=== PATIENT | male | born 1960 ===

== ENCOUNTER 2025-06-29 09:27 | Emergency (ER) | payer MEDICARE, MEDICAID, SELFPAY ==
[2025-06-29] VITALS (8 sets, daily range): BP systolic 112–154; BP diastolic 70–105; PULSE 73–95; RESP 16–19; TEMP 36.3–37.1; O2SAT 95–99; BMI 27.9
--- NOTE | 2025-06-29 10:10 | EDNOTE_ITS ---
ED Skin Abcess FB-RME/HPI General Chief complaint: Skin/Abscess/Foreign Body Stated complaint: SENT BY PMD FOR ABSCESS TO LEFT LEG Time Seen by Provider: 06/29/25 09:33 Arrival date/time: 06/29/25 09:27 RME / HPI RME / HPI narrative: See MDM for Dr. Pickett's HPI documentation. Related Data Allergies Allergy/AdvReac Type Severity Reaction Status Date / Time No Known Allergies Allergy Verified 06/29/25 09:31 Review of Systems Review of Systems Systems Reviewed: All systems reviewed, normal except as documented Past Medical History Social History SMOKING STATUS: Never smoker ED Exam Narrative Physical exam: See MDM for Dr. Pickett's physical exam documentation. Course Quality Measures none Orders Category Date Time Status CT Screening NOW Care 06/29/25 10:12 Active Saline [Insert IV] NOW Care 06/29/25 10:11 Active Consult to Orthopedic Stat Cons 06/29/25 16:12 Ordered Referral - Materials Handling Equipment Operator Stat Cons 06/29/25 16:13 Active Diet Regular Diet 06/29/[address] lower extremity BI w Stat Exams 06/29/25 10:12 Completed XR chest 1V portable Stat Exams 06/29/25 10:12 Completed XR hip LT w pelvis 2-3V Stat Exams 06/29/25 15:50 Completed Alcohol, Blood Medical Stat Lab 06/29/25 11:29 Completed Beta Hydroxybutyrate Stat Lab 06/29/25 11:29 Completed Bilirubin,Direct Stat Lab 06/29/25 11:29 Completed Blood Culture (Lab) Stat Lab 06/29/25 11:29 Received CBC Stat Lab 06/29/25 11:29 Completed CK [Creatine Kinase] Stat Lab 06/29/25 11:29 Completed CMP [Comprehensive Metabolic Panel] Stat Lab 06/29/25 11:29 Completed CRP [C-Reactive Protein] Stat Lab 06/29/25 11:29 Completed Drug Screen,Urine Stat Lab 06/29/25 12:58 Completed ESR [Sed Rate (ESR)] Stat Lab 06/29/25 11:29 Completed Hemoglobin A1C [Glycohemoglobin w (eAG)] Stat Lab 06/29/25 16:51 Ordered Lactate (Lactic Acid) Stat Lab 06/29/25 11:29 Completed Magnesium Stat Lab 06/29/25 11:29 Completed Procalcitonin Stat Lab 06/29/25 11:29 Completed TSH [Thyroid Stimulating Hormone] Stat Lab 06/29/25 11:29 Completed UA, C/S IF [Urinalysis, C/S if Indicated] Stat Lab 06/29/25 12:58 Completed VBG [Venous Blood Gas] Stat Lab 06/29/25 11:29 Completed Cefepime Inj [Maxipime Inj] 2 gm Med 06/29/25 10:11 Discontinued SODIUM CHLORIDE 0.9% (Popper) [Ns 0.9% (P)] 50 ml IV X1 Sodium Chloride 0.9% 1000 ml [Ns] 1,000 ml Med 06/29/25 10:11 Discontinued IV 999 mls/hr Vancomycin Inj 2,000 mg Med 06/29/25 10:11 Discontinued Sodium Chloride 0.9% 500 ml [Ns] 500 ml IV X1 Vital Signs Vital signs: Vital Signs Temperature 98.4 F 06/29/25 09:39 Pulse Rate 90 06/29/25 09:39 Respiratory Rate 16 06/29/25 09:39 Blood Pressure 112/71 06/29/25 09:39 Pulse Oximetry (%) 98 06/29/25 09:39 Oxygen Delivery Method Room Air 06/29/25 09:39 Pulse ox is 98% on room air which is adequate. Skin / Abscess / Foreign Body MDM Narrative MDM Narrative:: This section includes all my notes and documentations, including HPI, PE, and ED course. Atilio Pickett MD HPI: 65-year-old male here with a couple month history of redness/swelling/warmth/pa in in the left hip. Had left total hip in [place] over 30 years ago, around 1989. Due to insurance problem, he didn't seek medical care until today. No fever or chills or aches or malaise. No other complaints. ROS: All negative except as documented in HPI. Physical Exam: General: Alert and oriented. No acute distress with remaining still. Eyes: Conjunctivae and lids clear. ENT: No nasal congestion. Neck: Supple. Heart: RRR. Lungs: No respiratory distress. Skin: Warm and dry. Neuro: Alert and oriented X 3. Left Hip: Large area (size of small watermelon) with erythema/ edema/calor/tenderness. I reviewed all diagnostic test results: My interpretation of the chest x-ray is: NAD. My review of the left hip x-rays is: Subluxation of the proximal femoral head relative to the prosthetic acetabulum. Bone resorption/osteomyelitis surrounding the entire prosthetic left acetabulum. My review of the CT report is osteomyelitis and abscess. Blood tests and urine tests remarkable for WBC 16, ESR > 130, CRP 3.0. At this point, diagnoses include: Left hip osteomyelitis Left hip cellulitis Left hip abscess Left hip dislocation Status post total left hip arthroplasty Treatment here included: IVF Cefepime Vancomycin Remained stable. I discussed the case with our orthopedic surgeon, Dr. Lea.? About the presentation and exam and diagnostics and treatments here.? And need of further care in the hospital.? Recommended transfer to tertiary center for higher level of care. Our transfer nurse is trying to arrange transfer. At 6 PM on 06/29/2025, the care of the patient was transferred to Dr. Larose. Atilio Pickett MD Patient data External records reviewed:: None (No previous records for review ) Clinical information provided by:: patient Social determinants that could affect healthcare access:: none Patient has the following chronic illnesses:: None reported How is presenting disease/condition affected by chronic disease/condition?: no chronic disease Evaluation data The following diagnostics were reviewed and interpreted by me:: lab results and radiology exam(s) Lab and/or radiology exams considered but not ordered:: None Interpretation Summary: I reviewed all diagnostic test results: My interpretation of the chest x-ray is: NAD. My review of the left hip x-rays is: Subluxation of the proximal femoral head relative to the prosthetic acetabulum. Bone resorption/osteomyelitis surrounding the entire prosthetic left acetabulum. My review of the CT report is osteomyelitis and abscess. Blood tests and urine tests remarkable for WBC 16, ESR > 130, CRP 3.0. Medications / Prescriptions Medications or Prescriptions considered but not ordered:: None Medication administrations:: Medication Administration History Discontinued Medications Sodium Chloride (Ns) 1,000 mls @ 999 mls/hr IV .Q1H1M ONE Stop: 06/29/25 11:11 Last Infusion: 06/29/25 12:35 Dose: Infused Documented By: Admin: 06/29/25 11:34 Dose: 999 mls/hr Documented By: TM Vancomycin HCl 2,000 mg/ (Sodium Chloride) 500 mls @ 150 mls/hr IV X1 ONE Stop: 06/29/25 13:30 Last Admin: 06/29/25 12:57 Dose: 150 mls/hr Documented By: TM Cefepime HCl 2 gm/ Sodium (Chloride) 50 mls @ 100 mls/hr IV X1 ONE Stop: 06/29/25 10:40 Last Infusion: 06/29/25 12:04 Dose: Infused Documented By: Admin: 06/29/25 11:34 Dose: 100 mls/hr Documented By: TM Treatment here included: IVF Cefepime Vancomycin Consultations Consultation(s) initiated? (list below): Yes Consultation #1 (Physician, Specialty, Details): I discussed the case with our orthopedic surgeon, Dr. Lea.? About the presentation and exam and diagnostics and treatments here.? And need of further care in the hospital.? Recommended transfer to tertiary center for higher level of care. Diagnosis Skin/Abscess Differential Diagnosis: abscess of skin or subcutaneous tissue, herpes zoster, allergic reaction to drug, cellulitis and contact dermatitis Most likely diagnosis given after review of the tests above:: Left hip osteomyelitis Left hip cellulitis Left hip abscess Left hip dislocation Status post total left hip arthroplasty Admission Indicated Admission indicated?: not indicated Explain why admission is indicated or not indicated:: I discussed the case with our orthopedic surgeon, Dr. Lea.? About the presentation and exam and diagnostics and treatments here.? And need of further care in the hospital.? Recommended transfer to tertiary center for higher level of care. Admission Request Was there a request for admission?: No Disposition Plan Disposition Plan: other (specify) (At 6 PM on 06/29/2025, the care of the patient was transferred to Dr. Larose.) Discharge Plan Prescriptions/Referrals Referrals: Eugenio Macias MD [Primary Care Provider, Family Practice] - In 1 week Problem List Clinical Impression: Osteomyelitis of left hip, Cellulitis of left hip, Abscess of left hip, S/P total left hip arthroplasty, Dislocation of left hip Patient/Caregiver Discharge Instructions Print Language: Latvian
--- NOTE | 2025-06-29 10:12 | XR_ITS ---
Examination: CT bilateral lower extremities with intravenous contrast, 2-D sagittal reconstructions. 2-D coronal reconstructions. 3-D reconstructions. Date and time of exam: June, 1450 hours INDICATIONS: Upper left leg pain beginning 1 week ago CTDI: vol (mGy): 7.98 DLP: (mGycm): 775 Technique: Multiple 1.25 mm axial sections of the bilateral lower extremities with intravenous contrast, 60 cc Isovue-370 have been obtained. 2-D sagittal and coronal reconstructions have been obtained. 3-D reconstructions have been obtained. Low dose protocols were performed. One or more of the following dose reduction techniques were used; automated exposure control, adjustment of the mA and/or KV according to patient size, use of iterative reconstruction technique. Findings: Left hip bipolar hemiarthroplasty Bone resorption around the prosthetic acetabulum No fracture No fracture involving the femur Soft tissue swelling surrounding the prosthetic left hip Abscess collection in the soft tissue anterior to the prosthetic stem in the anterior thigh in the iliacus muscle, axial image 57, 3.4 x 2.8 x 8.1 cm Cellulitis in the soft tissue lateral to the left femur IMPRESSION: Bone resorption consistent with osteomyelitis surrounding the left hip bipolar hemiarthroplasty with soft tissue infectious mass surrounding the left hip including abscess in the anterior thigh in the iliacus muscle, measuring 3.4 x 2.8 x 8.1 cm
--- NOTE | 2025-06-29 10:12 | XR_ITS ---
EXAMINATION: AP chest single view TECHNIQUE: AP portable sitting chest single view Date and time: June 29, 2025, 10:30 a.m. INDICATION: Shortness of breath today. FINDINGS: The patient is rotated RPO. Normal heart size. Lungs are clear. Moderate osteopenia IMPRESSION: No active disease
[2025-06-29] MEDS: SODIUM CHLORIDE 0.9% 1000 ML 1,000 ML 999 ML IV (11:34)
[2025-06-29] MEDS: CEFEPIME INJ 2 GM in SODIUM CHLORIDE 0.9% (Popper) 50 ML IV (11:34)
[2025-06-29 11:40] LABS: Base Excess, Venous 2 (-3-3); Lactate (Lactic Acid) 1.4 mMol/L (0.4-2.0); O2 Saturation, Venous 54 % (96-97); PCO2, Venous 42 mmHg (36-56); PO2, Venous 29 mmHg (15-58); pH, Venous 7.41 (7.33-7.66)
[2025-06-29 11:42] LABS: Basophils # (Auto) 0.1 Thou/mm3 (0.0-0.2); Basophils % (Auto) 0 % (0-2.5); Eosinophils # (Auto) 0.2 Thou/mm3 (0.0-0.5); Eosinophils % (Auto) 1 % (0-10); Hematocrit 36.8 % (41.0-53.0); Hemoglobin 11.6 g/dL (13.5-16.0); Immature Granulocytes Auto 0.09 Thou/mm3 (0.00-0.00); Lymphocytes # (Auto) 2.0 Thou/mm3 (1.0-4.8); Lymphocytes % (Auto) 12 % (10-50); Mean Corpuscular HGB Conc 31.5 g/dl (31.0-37.0); Mean Corpuscular Hemoglobin 24.3 pg (25.0-35.0); Mean Corpuscular Volume 77 fL (80-100); Monocytes # (Auto) 1.3 Thou/mm3 (0.0-0.8); Monocytes % (Auto) 8 % (0-12); Neutrophils # (Auto) 12.3 Thou/mm3 (1.8-7.7); Neutrophils % (Auto) 77 % (37-80); Nucleated Red Blood Cell # 0.00 Thou/mm3 (0.00-0.00); Nucleated Red Blood Cell % 0 /100 WBC (0); Platelet Count 551 Thou/mm3 (140-440); RDW Standard Deviation 42.6 fL (35.1-43.9); Red Blood Count 4.78 Miln/mm3 (4.50-5.90); White Blood Count 16.0 Thou/mm3 (3.8-10.6)
[2025-06-29 11:50] LABS: Beta Hydroxybutyrate 0.1 mmol/L (<0.6)
[2025-06-29 12:13] LABS: Sed Rate (ESR) > 130 mm/hr (0-20)
[2025-06-29 12:14] LABS: Alanine Aminotransferase 14 U/L (10-49); Albumin, Serum 4.5 gm/dL (3.4-4.8); Albumin/Globulin Ratio 1.2 (1.2-2.2); Alcohol, Blood Medical < 3.0 mg/dL (0-10.0); Alkaline Phosphatase 89 U/L (46-116); Anion Gap 10 (7-16); Aspartate Amino Transferase 15 U/L (0-34); BUN/Creatinine Ratio 14 Ratio (12-20); Bilirubin,Direct 0.1 mg/dL (0.0-0.3); Bilirubin,Total 0.3 mg/dL (0.3-1.2); Blood Urea Nitrogen 13 mg/dL (9-23); C-Reactive Protein 3.0 mg/dL (0.0-0.9); Calcium 9.5 mg/dL (8.3-10.6); Calcium (Corrected) 9.5 mg/dL (8.5-10.1); Carbon Dioxide 25.0 mMol/L (20.0-31.0); Chloride 102 mMol/L (98-107); Creatine Kinase 36 U/L (34-171); Creatinine (Component) 0.9 mg/dL (0.6-1.3); Estimated Creatinine Clearance 75.9 mL/min (>60); Globulin 3.7 gm/dL (2.3-3.5); Glucose 97 mg/dL (74-106); Magnesium 2.0 mg/dL (1.6-2.6); Osmolality,Calculated 273 (275-295); Potassium 3.8 mMol/L (3.4-5.1); Procalcitonin < 0.04 ng/ml (0.0-0.49); Sodium 137 mMol/L (136-145); Thyroid Stimulating Hormone 2.15 uIU/mL (0.55-4.78); Total Protein 8.2 gm/dL (5.7-8.2); eGFR > 60 See Note
--- NOTE | 2025-06-29 12:16 | PC.NURSE ---
pharmacy to bring soraya
[2025-06-29] MEDS: Vancomycin Inj 2,000 MG in SODIUM CHLORIDE 0.9% 500 ML 500 ML 150 MG IV (12:57)
[2025-06-29 13:14] LABS: Collection Type, Urine Clean Catch; Squamous Epithelial Cell,Urine 0 /hpf (0-5)
[2025-06-29 13:24] LABS: Amphetamine/Methamp Scrn,U Negative (Negative); Barbiturate Screen,Urine Negative (Negative); Benzodiazepines Screen,Urine Negative (Negative); Benzoylecgonine Screen, Ur Negative (Negative); Fentanyl Screen,Urine Negative (Negative); Opiate Screen,Urine Negative (Negative); THC Screen,Urine Negative (Negative)
[2025-06-29 13:44] LABS: Bilirubin,Urine Negative (Negative); Blood,Urine Negative (Negative); Clarity,Urine Clear (Clear/Hazy); Color,Urine Lt-Yellow (Lt Yel-Yel); Culture Indicated,Urine Not Indicated; Glucose, Urine Negative (Negative); Ketones,Urine Negative (Negative); Leukocyte Esterase,Urine Negative (Negative); Nitrite,Urine Negative (Negative); PH,Urine 6.5 (5.0-7.0); Protein,Urine Negative (Neg - Trace); RBC,Urine 4 /hpf (0-3); Specific Gravity,Urine 1.016 (1.001-1.035); Urobilinogen,Urine Negative mg/dL (0.0-1.0); WBC,Urine 3 /hpf (0-5)
--- NOTE | 2025-06-29 15:50 | XR_ITS ---
Examination: Left hip AP, lateral, AP pelvis 3 views Technique: Hip AP lateral, AP pelvis, 3 views Exam date and time: June 29, 2025, 1553 hours INDICATIONS: Patient fell today with injury to the hip, hip pain FINDINGS: There appears to be subluxation of the proximal femoral head relative to the acetabular There is bone resorption surrounding the entire prosthetic left hip No definite fracture IMPRESSION: Subluxation of the proximal femoral head relative to the prosthetic acetabulum Bone resorption/osteomyelitis surrounding the entire prosthetic left acetabulum.
--- NOTE | 2025-06-29 16:18 | ESCONSULT_ITS ---
HPI Consult details Reason for consultation narrative: left hip periprosthetic joint infection History of present illness: Patient is a 65-year-old male with multiple medical comorbidities including uncontrolled diabetes who presents with left hip pain. I spoke to the patient with an medical interpreter today. Meds Home Medications and Allergies Allergies Allergy/AdvReac Type Severity Reaction Status Date / Time No Known Allergies Allergy Verified 06/29/25 09:31 Exam Vital Signs Temp Pulse Resp BP Pulse Ox O2 Del Method 98.4 F 73 18 154/105 H 99 Room Air 06/29/25 14:19 06/29/25 14:19 06/29/25 14:19 06/29/25 14:19 06/29/25 14:19 06/29/25 14:19 Additional findings Additional findings: Patient has a draining sinus on the anterior thigh ESR 130, CRP 30 Results - Ortho Labs 06/30/25 06:38 06/30/25 06:38 Labs: Short CBC 06/29/25 Range/Units 11:29 WBC 16.0 H (3.8-10.6) Thou/mm3 Hgb 11.6 L (13.5-16.0) g/dL Hct 36.8 L (41.0-53.0) % Plt Count 551 H (140-440) Thou/mm3 BMP 06/29/25 11:29 Sodium 137 Potassium 3.8 Chloride 102 Carbon Dioxide 25.0 BUN 13 Creatinine 0.9 Glucose 97 Calcium 9.5 Cardiac Enzymes 06/29/25 Range/Units 11:29 Total Creatine Kinase 36 (34-171) U/L Liver Function 06/29/25 Range/Units 11:29 Total Bilirubin 0.3 (0.3-1.2) mg/dL Direct Bilirubin 0.1 (0.0-0.3) mg/dL AST 15 (0-34) U/L ALT 14 (10-49) U/L Alkaline Phosphatase 89 (46-116) U/L Albumin 4.5 (3.4-4.8) gm/dL Urine 06/29/25 Range/Units 12:58 Urine Color Lt-Yellow (Lt Yel-Yel) Urine Clarity Clear (Clear/Hazy) Urine pH 6.5 (5.0-7.0) Ur Specific [place] 1.016 (1.001-1.035) Urine Protein Negative (Neg - Trace) Urine Glucose (UA) Negative (Negative) ABG Interpretation ABG results: 06/29/25 11:29 VBG pH 7.41 VBG pCO2 42 VBG pO2 29 VBG Base Excess 2 Imaging Xray: Additional comments: Patient has an x-ray that demonstrates a cementless total hip replacement with a spun out and the loose acetabular component. In addition, the hip is dislocated because of the cup spin out consistent with acetabular loosening. There is a long stemmed cementless component that appears to be circumferentially coated. CT scan demonstrates a hip abscess approximately 3 x 8 cm. Assessment & Plan Problem List (1) Prosthetic joint infection: Status: Acute Assessment and plan: Patient is a 65-year-old male with multiple comorbidities including poorly controlled diabetes with a left total hip replacement done in the and with periprosthetic joint infection, acetabular loosening, and a dislocation with a chronically draining sinus. The patient's hemodynamic signs are currently stable. He has elevated ESR and CRP markers as expected. The patient has no known organism and will need an aspiration. 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 Given the extent of his complications, I think it is very safe to say that his surgery should not be done at the [facility]. He will almost for sure need an ETO to remove his stem and I honestly have a universal femoral extraction set available at this hospital or any pencil-tip burs for removal of this femoral component. Should the patient become hemodynamically unstable I will consider washing out the abscess but the patient will likely need a two-stage exchange arthroplasty since his acetabular component is loose and spun and thus I am recommending transfer to a tertiary care hospital. Given that the patient's vital signs are stable, I think it is possible that this patient can be taking care of from an outpatient perspective with a [facility] if we obtain an aspiration and identify an organism although he does have a rather large sinus. I can perform source control could he become septic and unstable in the meantime. Recommend - transfer to tertiary care hospital - hip aspiration, hold anitbiotics until an organism is identified
[2025-06-29 17:17] LABS: Glucose Estimated Average 117 mg/dL (80-131); Hemoglobin A1C 5.7 % Hgb (4.8-6.0)
--- NOTE | 2025-06-29 18:05 | PD.EDADDENDU ---
Emergency Room Addendum <Margarita Macias - Last Filed: 06/29/25 18:06> Addendum Narrative: 1800: Care assumed from Dr. Pickett, the previous shift emergency physician. Past medical, surgical, social and family history reviewed. Vitals and home medications reviewed. Results and treatment plan discussed. I will assume the care of the patient at this time and will follow the patient, pending transfer. Please refer to the emergency department record for history and examination from initial visit. <Arias Larose DO - Last Filed: 06/30/25 03:58> Addendum Narrative: 1800: Care assumed from Dr. Pickett, the previous shift emergency physician. Past medical, surgical, social and family history reviewed. Vitals and home medications reviewed. Results and treatment plan discussed. I will assume the care of the patient at this time and will follow the patient, pending transfer. Please refer to the emergency department record for history and examination from initial visit. During my ER shift the patient required another dose of cefepime 1 g IV due to the fact that the last dose was 12 hours ago. So far attempts have been made to her current medical, [facility], [facility], [facility], all of which for various reasons have not excepted this patient. A call is currently out to [facility] at this time and they are reviewing the case.
--- NOTE | 2025-06-29 18:55 | PC.CC ---
Addendum entered by Shailesh Martinez RN 06/29/25 19:28: 1900: Transfer packet w/ CD x1 and hand off report given to ED CN Verito. She will continue with transfer search. Original Note: 1855: Received call from [facility], Dr. Imtiaz Conteh declined - unable to provide service pt needs. Dr. Moncada in [place] declined - unable to provide service pt needs. Transfer packet with CD created. Will handoff to ED charge nurse 1705: Carol spoke to Dr. Pickett, Dr Chilel ortho declined patient - unable to provide service pt needs. 1636: spoke to Sydney bustos/ [facility], she will review and present 1634: Spoke to Carol with [facility], will present 1613: received transfer order for orthopedic for left hip infection and abscess, needs hip revision. Sent clinicals to [facility] and [facility].
--- NOTE | 2025-06-29 21:06 | PC.NURSE ---
20:09 CLINICALS sent to both [facility] and [facility]. Initiated transfer with MD Thuan Ugarte on the phone with transfer center answering EMTALA questions. [facility] states they will present to their orthopedist
--- NOTE | 2025-06-29 21:15 | PC.NURSE ---
[facility] Declined due to them not being a tertiary center Monet at transfer center stated Orthopedist Jocy Becerra recommended a center with joint revision
--- NOTE | 2025-06-29 22:48 | PC.NURSE ---
[facility] Declined due to service not available unable to do ortho revisions.
--- NOTE | 2025-06-29 23:31 | PC.NURSE ---
Clinicals faxed to [facility], [facility], [place], and [facility].Will contact to initiate transfer.
[2025-06-30] VITALS (11 sets, daily range): BP systolic 118–150; BP diastolic 70–104; PULSE 73–86; RESP 12–19; TEMP 36.7–37.1; O2SAT 95–100
--- NOTE | 2025-06-30 00:41 | PC.NURSE ---
[facility] initiated transfer, images pushed through [facility]. Sara from the transfer center stated she had received clinicals and images. She stated she will present to the orthopedist manager administration.
[2025-06-30] MEDS: CEFEPIME INJ 1 GM in SODIUM CHLORIDE 0.9% (Popper) 50 ML IV (00:43)
--- NOTE | 2025-06-30 01:17 | PC.NURSE ---
[facility] Declining at the moment states their physician Oneyda stated the pt is stable therefore not septic due to the presented vital signs and therefore not needing an emergent transfer . States its a chronic infection, if it becomes septic then they recommend an I &D for source control
--- NOTE | 2025-06-30 01:56 | PC.NURSE ---
[facility] contacted states they are at capacity at the moment
--- NOTE | 2025-06-30 02:08 | PC.NURSE ---
[facility] contacted for transfer states they do not have capability for hip revision at [place], [facility] or [facility]
--- NOTE | 2025-06-30 02:35 | PC.NURSE ---
Initiated transfer with [place]. MD Larose on the phone with transfer center to answer EMTALA questions stated they would review the case
[2025-06-30 06:58] LABS: Sed Rate (ESR) > 130 mm/hr (0-20)
[2025-06-30 07:01] LABS: Basophils # (Auto) 0.1 Thou/mm3 (0.0-0.2); Basophils % (Auto) 0 % (0-2.5); Eosinophils # (Auto) 0.3 Thou/mm3 (0.0-0.5); Eosinophils % (Auto) 2 % (0-10); Hematocrit 34.4 % (41.0-53.0); Hemoglobin 10.7 g/dL (13.5-16.0); Immature Granulocytes Auto 0.09 Thou/mm3 (0.00-0.00); Lymphocytes # (Auto) 1.7 Thou/mm3 (1.0-4.8); Lymphocytes % (Auto) 10 % (10-50); Mean Corpuscular HGB Conc 31.1 g/dl (31.0-37.0); Mean Corpuscular Hemoglobin 24.2 pg (25.0-35.0); Mean Corpuscular Volume 78 fL (80-100); Monocytes # (Auto) 1.5 Thou/mm3 (0.0-0.8); Monocytes % (Auto) 9 % (0-12); Neutrophils # (Auto) 13.4 Thou/mm3 (1.8-7.7); Neutrophils % (Auto) 79 % (37-80); Nucleated Red Blood Cell # 0.00 Thou/mm3 (0.00-0.00); Nucleated Red Blood Cell % 0 /100 WBC (0); Platelet Count 554 Thou/mm3 (140-440); RDW Standard Deviation 43.5 fL (35.1-43.9); Red Blood Count 4.42 Miln/mm3 (4.50-5.90); White Blood Count 17.0 Thou/mm3 (3.8-10.6)
[2025-06-30 07:09] LABS: Anion Gap 8 (7-16); BUN/Creatinine Ratio 14 Ratio (12-20); Blood Urea Nitrogen 11 mg/dL (9-23); Calcium 8.6 mg/dL (8.3-10.6); Carbon Dioxide 25.6 mMol/L (20.0-31.0); Chloride 102 mMol/L (98-107); Creatinine (Component) 0.8 mg/dL (0.6-1.3); Estimated Creatinine Clearance 85.4 mL/min (>60); Glucose 94 mg/dL (74-106); Osmolality,Calculated 271 (275-295); Potassium 4.0 mMol/L (3.4-5.1); Sodium 136 mMol/L (136-145); eGFR > 60 See Note
--- NOTE | 2025-06-30 07:09 | EDNOTE_ITS ---
Emergency Room Addendum Addendum Narrative: I took over the care from previous shift physician, Dr. Larose, at _0600_ on _06/30/25_.? See previous notes for complete H & P and ED course.?? HPI: 65-year-old male who presented with a couple month history of redness/swelling/warmth/pain in the left hip. Had left total hip in [place] over 30 years ago, around 1989. Due to insurance problem, he didn't seek medical care until today. No fever or chills or aches or malaise. I reviewed all diagnostic test results: My interpretation of the chest x-ray is: NAD. My review of the left hip x-rays is: Subluxation of the proximal femoral head relative to the prosthetic acetabulum. Bone resorption/osteomyelitis surrounding the entire prosthetic left acetabulum. My review of the CT report is osteomyelitis and abscess. Blood tests and urine tests remarkable for WBC 16, ESR > 130, CRP 3.0. At this point, diagnoses include: Left hip osteomyelitis Left hip cellulitis Left hip abscess Left hip dislocation Status post total left hip arthroplasty Treatment here included (at initial presentation): IVF Cefepime Vancomycin Today, IR successfully placed CT-guided percutaneous drainage catheter in the left hip abscess. Culture results from the aspiration pending. I discussed the case with our orthopedic surgeon, Dr. Lea.? About the presentation and exam and diagnostics and treatments here.? And need of further care in the hospital.? Recommended transfer for higher level care. Our transfer center attempted to transfer the patient. Multiple hospitals, including [facility], declined. Because he needs outpatient total left hip revision, no emergent intervention necessary. I discussed the case with our orthopedic surgeon, Dr. Lea, again and our hospitalist team.? About the presentation and exam and diagnostics and treatments here.? And need of further care in the hospital.? After evaluating the patient physically, orthopedic surgeon and hospitalist team declined. Recommended outpatient care. Dr. Lea instructed absolutely no antibiotics until the return of the aspiration culture results. Based on my best medical judgment, made decision no further evaluation or treatment indicated at this time.? Patient understands and agrees to the discharge instructions customized and printed, see below. Discharge Instructions from Dr. Pickett printed for you: 1. After extensive evaluation and investigation (including by Dr. Lea, our orthopedic surgeon, and orthopedic surgeons from many other hospitals, including [place] or [facility]), you don't need emergent intervention or surgery. Because your left hip infection has been going on for months, maybe years. You will eventually need surgery (as outpatient), including total revision of your left hip. 2. Fluid was removed from your left hip infection. And catheter placed to drain more infection out into the bag. 3. Appointment was made for you at [facility] on 07/02/2025. Make sure you make the appointment. Ask to review all test results and official radiology reports, to make sure you receive all necessary follow-ups and monitoring. Including the culture results from the fluid drained today. This will determine what antibiotics you need. Dr. Lea, our orthopedic surgeon, stressed no antibiotics until the return of the culture results. Ask for referral to orthopedic surgeon who can perform your left hip revision. 4. Seek immediate medical care with worsening, fever, or with any concerns. Instrucciones de harry del Dr. Pickett impresas para usted: 1. Tras julia evaluaci?n e investigaci?n exhaustivas (incluidas las realizadas por el Dr. Lea, nuestro cirujano ortop?dico, y cirujanos ortop?dicos de otros hospitales, [facility] [place] o [facility]), no necesita julia intervenci?n de urgencia ni cirug?a. Dado que banuelos infecci?n de cadera izquierda esparza estado presente ashley meses, quiz?s a?os, eventualmente necesitar? cirug?a (ambulatoria), que incluye julia revisi?n total de la cadera izquierda. 2. Se extrajo l?quido de la infecci?n de banuelos cadera izquierda. Y se coloc? un cat?ter para drenar m?s infecci?n a la bolsa. 3. Se le program? julia johnie en [facility] para el 02/07/2025. Aseg?rese de asistir a la johnie. Solicite revisar todos los resultados de las pruebas y los informes radiol?gicos oficiales para garantizar que reciba todos los seguimientos y la monitorizaci?n necesarios. Incluidos los resultados del cultivo del l?quido drenado hoy. Neponset determinar? qu? antibi?ticos necesita. El Dr. Lea, nuestro cirujano ortop?dico, insisti? en no luca antibi?ticos hasta obtener los resultados del cultivo. Solicite julia derivaci?n a un cirujano ortop?dico que pueda realizar la revisi?n de banuelos cadera izquierda. 4. Busque atenci?n m?dica inmediata si banuelos estado empeora, presenta fiebre o cualquier otra preocupaci?n. Atilio Pickett MD
--- NOTE | 2025-06-30 07:43 | XR_ITS ---
Examination: CT-guided percutaneous placement abscess drainage catheter soft tissue lower lateral left hip CT pelvis without intravenous contrast Date and time of procedure: June 30, 2025, 1422 hours INDICATIONS: Soft tissue abscess lateral to the prosthetic left hip on CT examination pelvis June 29, 2025 Informed consent provided. A timeout was completed verifying correct patient, procedure, site and positioning. Technique: Axial 3 mm sections were obtained for localization of the soft tissue abscess lateral to the left hip Appropriate area is marked. The patient's site was prepped and draped in sterile fashion Maximal sterile barrier technique utilized, including hand hygiene Local anesthesia was obtained with 1% lidocaine. Low dose protocols were performed. One or more of the following dose reduction techniques were used; automated exposure control, adjustment of the mA and/or KV according to patient size, use of iterative reconstruction technique. Utilizing CT fluoroscopic guidance 5 Belgian catheter percutaneously placed in the abscess 0.35 eyGuide introduced through the catheter followed by 6 Belgian pigtail abscess drainage catheter in proper position Purulent material aspirated for culture and sensitivity Patient appears in stable condition during this procedure. At completion of the procedure, the patient is in satisfactory condition. Estimated blood loss 2 cc Complete culture and sensitivity report to follow. Impression: Successful CT-guided percutaneous placement abscess drainage catheter soft tissue abscess lower lateral to the left
[2025-06-30 07:56] LABS: INR 1.0 (0.9-1.3); Partial Thromboplastin Time 31.6 Seconds (22.0-36.0); Prothrombin Time 11.1 Seconds (9.0-12.2)
--- NOTE | 2025-06-30 08:55 | PC.NURSE ---
patient was able to ambulate with use of crutches to the bathroom, patient has noted drainage to left thigh area to x2 areas , that are red, warm to touch and draining white appearing fluid , area cleansed and dry dressing applied for drainage ,
--- NOTE | 2025-06-30 09:14 | PC.CM ---
Addendum entered by Bianka Lyon RN 06/30/25 15:13: I spoke to charge nurse and I reviewed Dr. Lea's notes. Patient transfer has been canceled and patient will need to follow up with his PCP to get an outpatient follow up for ortho services. Addendum entered by Bianka Lyon RN 06/30/25 11:32: [id number] [facility] declined due to capacity. Addendum entered by Bianka Lyon RN 06/30/25 10:27: 0930 I spoke to [facility] and I spoke to Gabrielle transfer nurse. She states they have to decline patient due to the fact they are on strike protocol and they are not accepting any new patients. She states the strike should be over tomorrow and I am welcome to try back tomorrow if I am still looking for placement. Original Note: [id number] I called [facility] to follow up on transfer request. Transfer nurse states they declined patient due to capacity. I called ED charge and gave an update.
--- NOTE | 2025-06-30 11:30 | EVENTNT_ITS ---
Documentation for date of: 06/30/25 Event Note Event Note: 65-year-old male with past medical history of prosthetic left hip joint, came in with a chief complaint of redness and tenderness in the left hip. Orthopedic surgery was consulted in the ER they recommended IR aspiration of the joint and outpatient follow-up with orthopedic surgery or transfer to a tertiary center. Overnight IR was unavailable hence patient was planned to transfer from ER to higher level of care for further management, was refused by multiple facilities and hence was scheduled this morning for IR drainage. Emergency department requesting evaluation for inpatient admission, case was discussed with orthopedic surgeon, continues to recommend patient to be followed at tertiary [facility] as an outpatient, per orthopedic surgeon this morning oral antibiotics can be considered on discharge for management of infection, patient to follow-up with primary care physician for culture results and optimize therapy. Case was discussed with orthopedic surgeon ER physician, patient stable to be discharged to follow-up with his PCP and orthopedic surgery at tertiary [facility], does not qualify for inpatient admission currently, hospitalist service can be consulted again as needed. Case discussed with Attending Physician Dr. Ashish Valencia MD Internal Medicine PGY-2 Disclaimer: This note was dictated by speech recognition. Minor errors in gold tooler may be present due to voice recognition software.
--- NOTE | 2025-06-30 11:57 | PC.NURSE ---
Dr Lea at bedside, patient is to go to IR for drainage of abcess, and then to follow up with pcp, for referral to [facility] on possible referral of hardware removal due to the infection,
--- NOTE | 2025-06-30 12:02 | PD.ORTHCONPN ---
Subjective Subjective Brief History: Patient is a 65-year-old male with multiple medical comorbidities including uncontrolled diabetes who presents with left hip pain. I spoke to the patient with an general manager road production again today. Narrative: The patient is a 65-year-old male with a left total hip replacement done in [place] in the . He has not seen any medical doctor for over 5 years and reports that he has not had his hip checked since surgery. He reports that he noticed that he had a draining area on his anterior thigh 2 months ago. He reports that he has always been short on the left and really started to have to use crutches for at least 2 months. He denies any fevers or chills. 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 The cup is almost completely vertical at this time. I recommended aspiration and either transfer or outpatient follow-up. Overnight, they attempted to transfer the patient but it was denied at multiple tertiary care hospitals as this is a chronic problem. Exam Vital Signs Temp Pulse Resp BP Pulse Ox O2 Del Method 98.3 F 86 18 118/74 98 Room Air 06/30/25 10:00 06/30/25 11:24 06/30/25 11:24 06/30/25 11:24 06/30/25 11:24 06/30/25 11:24 Additional findings Additional findings: Patient is in no acute distress and is cooperative with the examination today. Patient has a normal mood and affect. Breathing is nonlabored. In no respiratory distress. Bilateral extremities were evaluated and demonstrates sensation intact to light touch. Palpable pedal pulses are present. No significant edema is present. Left lower extremity is 3 cm shorter than the right side. Incision on the side is clean dry and intact. He does have a large sinus on the anterior aspect with drainage. There is no pain with logroll interestingly Objective - Ortho Labs 06/30/25 06:38 06/30/25 06:38 Labs: Laboratory Results - last 24 hr 06/29/25 06/29/25 06/30/25 11:29 12:58 06:38 WBC 17.0 H RBC 4.42 L Hgb 10.7 L Hct 34.4 L MCV 78 L MCH 24.2 L MCHC 31.1 RDW Std Deviation 43.5 Plt Count 554 H Neut % (Auto) 79 Lymph % (Auto) 10 Kimble % (Auto) 9 Eos % (Auto) 2 Baso % (Auto) 0 Neut # (Auto) 13.4 H Lymph # (Auto) 1.7 Kimble # (Auto) 1.5 H Eos # (Auto) 0.3 Baso # (Auto) 0.1 Immature Gran # (Auto) 0.09 H Absolute Nucleated RBC 0.00 Immature Gran % 1 H Nucleated RBC % 0 ESR > 130 H > 130 H PT 11.1 INR 1.0 APTT 31.6 Sodium 137 136 Potassium 3.8 4.0 Chloride 102 102 Carbon Dioxide 25.0 25.6 Anion Gap 10 8 BUN 13 11 Creatinine 0.9 0.8 Estim Creat Clear Calc 75.9 85.4 eGFR > 60 > 60 BUN/Creatinine Ratio 14 14 [address]ucose [address] Glu mg/dL 117 Hemoglobin A1c 5.7 Calculated Osmolality 273 L 271 L Calcium 9.5 8.6 Corrected Calcium 9.5 Magnesium 2.0 Total Bilirubin 0.3 Direct Bilirubin 0.1 AST 15 ALT 14 Alkaline Phosphatase 89 Total Creatine Kinase 36 C-Reactive Prot, Quant 3.0 H Total Protein 8.2 Albumin 4.5 Globulin 3.7 H Albumin/Globulin Ratio 1.2 Procalcitonin < 0.04 TSH 2.15 Ur Collection Type Clean Catch Urine Color Lt-Yellow Urine Clarity Clear Urine pH 6.5 Ur Specific [place] 1.016 Urine Protein Negative Urine Glucose (UA) Negative Urine Ketones Negative Urine Blood Negative Urine Nitrite Negative Urine Bilirubin Negative Urine Urobilinogen (Auto) Negative Ur Leukocyte Esterase Negative Urine RBC 4 H Urine WBC 3 Ur Squamous Epith Cells 0 Urine Bacteria None Ur Culture Indicated? Not Indicated Urine Opiates Screen Negative Urine Fentanyl Screen Negative Ur Barbiturates Screen Negative U Amphetamin/Meth Scrn Negative U Benzodiazepines Scrn Negative U Cocaine Metab Screen Negative U Marijuana (THC) Screen Negative Ethyl Alcohol < 3.0 Imaging and cardiology hip x-ray: Additional comments: Left hip x-ray demonstrates acetabular loosening of the cementless acetabular component which is now vertically oriented. There is subluxation of the femoral head as well. The left hip is approximately 3 cm shorter compared to the right ABG Interpretation ABG results: 06/29/25 11:29 VBG pH 7.41 VBG pCO2 42 VBG pO2 29 VBG Base Excess 2 Assessment & Plan Diagnosis (1) Prosthetic joint infection: Status: Acute Assessment Additional comments: Patient is a 65-year-old male with a chronic of the left hip who is developed a draining sinus in the last 2 months with complete acetabular loosening and migration of the component. Given that there is a sinus, the patient has a periprosthetic joint infection and it is still unclear how long this has been ongoing for. The patient's explantation and spacer placement or [place] would likely best be done at a [place] or tertiary care hospital. At the [facility] setting I am currently at, we do not have a universal femoral extractor pencil-tip burs for removal of the component. The ER has tried to transfer the patient overnight but it was not excepted by any tertiary care center likely because this has been a chronic and ongoing problem. The patient has stable vital signs and is hemodynamically stable. There has not really been any worsening of the symptoms within the last 2 months. T I thus recommend that the patient get a hip aspiration for identification of the causing organism. I do not recommend any antibiotics until we have a clear organism especially since the patient has stable vital signs. In addition, we called the patient's primary care provider at [facility] and he has not been seen for over 4 years. We have arranged an ER follow-up with the patient in 2 days. The patient will need referral to a tertiary care center as he has a chronic periprosthetic joint infection that will need [place] or tertiary level care. I would not recommend the use of any chronic or therapeutic antibiotics until a organism is identified which we will hopefully get and confirm with a hip aspiration today. I discussed with both the ER physician and the patient using general manager road production that this is likely going to be managed outpatient as the patient will surely need to be optimized medically before undergoing a rather large surgery. The patient understands the risk of surgeries and the importance of follow-up with his PCP in order to get surgery for infection control arranged. Given that the patient is stable, I do think outpatient therapy is appropriate after hip aspiration is performed. - Referral to [facility] for explantation - Follow-up with his PCP - Follow-up with hip aspiration results - I think oral antibiotics or suppression is reasonable but we need to determine the organism first. It is likely polymicrobial given that there is a long-term sinus Documentation for date of: 06/30/25
--- NOTE | 2025-06-30 14:10 | PC.NURSE ---
patient taken for IR procedure
[2025-06-30] MEDS: fentaNYL CIT INJ 50 mCg/ML AMP 2ML 100 MCG IVP (14:50)
--- NOTE | 2025-06-30 15:17 | PC.NURSE ---
patient returned from IR at this time, patient is alert and verbal , is now eating a sandwish, has no c/o pain or disocmfort, has a draine in place to the left hip , drainage noted to be serous in tube of drain
[2025-06-30 16:11] LABS: Misc Fluid, WBC 19037 /cmm
[2025-06-30 16:13] LABS: Misc Fld, Color Red; Misc Fld, Source Miscellaneous; Misc Fluid, Mononuclear WBC 13 %; Misc Fluid, Polynuclear 87 %; Misc Fluid, RBC 30000 /cmm; Miscellaneous Fld, Appearance Hazy
== END 2025-06-30 16:13 | disposition home or self-care (01) ==
PROVIDERS: Radiology Diagnostic Radiology; Emergency Provider Emergency Medicine; PCP Family Medicine
DX: L02.416 Cutaneous abscess of left lower limb (principal); J98.8 Other specified respiratory disorders; E11.65 Type 2 diabetes mellitus with hyperglycemia; E11.69 Type 2 diabetes mellitus with other specified complication
CPT/HCPCS: 36415; 71045; 73502; 73701; 75989; 80048; 80053; 80307; 80320; 81001; 82010; 82248; 82550; 82803; 82945; 83036; 83605; 83735; 84145; 84315; 84443; 85025; 85610; 85652; 85730; 86140; 87040; 87070; 87205; 89051; 96361; 96365; 96366; 96375; 99284; A4649; J0692; J3010; J3373; J7030; J7050; J7999; Q9967; G0480

== ENCOUNTER 2025-07-13 11:14 | Emergency (ER) | payer MEDICARE, MEDICAID, SELFPAY ==
[2025-07-13 11:14] VITALS: BMI 27.4
[2025-07-13 11:37] VITALS: BP 146/76; PULSE 66; RESP 16; TEMP 36.9; O2SAT 98
--- NOTE | 2025-07-13 11:42 | XR_ITS ---
Examination: CT bilateral lower extremities with intravenous contrast, 2-D sagittal reconstructions. 2-D coronal reconstructions. 3-D reconstructions. Date and time of exam: July 13, 2025, 1447 hours, comparison June 29, 2025 INDICATIONS: History abscess soft tissue left hip post CT-guided drainage CTDI: vol (mGy): 12.9 DLP: (mGycm): 668 Technique: Multiple 1.25 mm axial sections of the bilateral lower extremities have been obtained. 2-D sagittal and coronal reconstructions have been obtained. 3-D reconstructions have been obtained. Low dose protocols were performed. One or more of the following dose reduction techniques were used; automated exposure control, adjustment of the mA and/or KV according to patient size, use of iterative reconstruction technique. Findings: The soft tissue abscess anterior lateral left hip has collapsed The drainage catheter is in satisfactory position The displaced prosthetic femoral head relative to the acetabulum is again noted Negative for osteomyelitis No new pelvic abscess No significant cellulitis pattern IMPRESSION: Soft tissue abscess lateral anterior to the left hip is no longer identified
--- NOTE | 2025-07-13 11:44 | PD.EDRME ---
Rapid Medical Screening Exam E Arrival date/time: 07/13/25 11:14 65-year-old male with no known medical history presents to the emergency room with a chief complaint of a drain in his left hip no longer draining. Patient states he had a drain placed in his left hip due to an abscess. Patient states has been a week with no drainage and today when he followed up with his primary care provider he was sent to the emergency room I have greeted and performed a focused initial assessment of this patient. A comprehensive ED assessment and evaluation of the patient, analysis of all test results, and completion of the medical decision making process will be conducted by additional ED providers. Chief Complaint: Wound/Laceration Time Seen by Provider: 07/13/25 11:35 Vital signs: Vital Signs Temperature 98.4 F 07/13/25 11:37 Pulse Rate 66 07/13/25 11:37 Respiratory Rate 16 07/13/25 11:37 Blood Pressure 146/76 H 07/13/25 11:37 Pulse Oximetry (%) 98 07/13/25 11:37 Oxygen Delivery Method Room Air 07/13/25 11:37 Vital signs reviewed by provider: Yes Exam: Left lower extremity tenderness and erythema to the site around the drain GCS of 15 Clinical Impression: Left hip abscess/osteomyelitis/cellulitis
[2025-07-13 13:02] LABS: Lactate (Lactic Acid) 1.2 mMol/L (0.4-2.0)
[2025-07-13 13:11] LABS: Basophils # (Auto) 0.1 Thou/mm3 (0.0-0.2); Basophils % (Auto) 1 % (0-2.5); Eosinophils # (Auto) 0.3 Thou/mm3 (0.0-0.5); Eosinophils % (Auto) 3 % (0-10); Hematocrit 36.3 % (41.0-53.0); Hemoglobin 11.0 g/dL (13.5-16.0); Immature Granulocytes Auto 0.04 Thou/mm3 (0.00-0.00); Lymphocytes # (Auto) 2.0 Thou/mm3 (1.0-4.8); Lymphocytes % (Auto) 17 % (10-50); Mean Corpuscular HGB Conc 30.3 g/dl (31.0-37.0); Mean Corpuscular Hemoglobin 24.2 pg (25.0-35.0); Mean Corpuscular Volume 80 fL (80-100); Monocytes # (Auto) 1.2 Thou/mm3 (0.0-0.8); Monocytes % (Auto) 11 % (0-12); Neutrophils # (Auto) 7.8 Thou/mm3 (1.8-7.7); Neutrophils % (Auto) 68 % (37-80); Nucleated Red Blood Cell # 0.00 Thou/mm3 (0.00-0.00); Nucleated Red Blood Cell % 0 /100 WBC (0); Platelet Count 423 Thou/mm3 (140-440); RDW Standard Deviation 51.4 fL (35.1-43.9); Red Blood Count 4.54 Miln/mm3 (4.50-5.90); White Blood Count 11.3 Thou/mm3 (3.8-10.6)
[2025-07-13 13:32] VITALS: BP 175/81; PULSE 70; RESP 16; TEMP 36.8; O2SAT 98
[2025-07-13 13:45] LABS: Alanine Aminotransferase 11 U/L (10-49); Albumin, Serum 4.3 gm/dL (3.4-4.8); Albumin/Globulin Ratio 1.2 (1.2-2.2); Alkaline Phosphatase 90 U/L (46-116); Anion Gap 8 (7-16); Aspartate Amino Transferase 16 U/L (0-34); BUN/Creatinine Ratio 11 Ratio (12-20); Bilirubin,Total 0.4 mg/dL (0.3-1.2); Blood Urea Nitrogen 9 mg/dL (9-23); Calcium 8.8 mg/dL (8.3-10.6); Calcium (Corrected) 8.8 mg/dL (8.5-10.1); Carbon Dioxide 25.1 mMol/L (20.0-31.0); Chloride 104 mMol/L (98-107); Creatinine (Component) 0.8 mg/dL (0.6-1.3); Estimated Creatinine Clearance 81.8 mL/min (>60); Globulin 3.7 gm/dL (2.3-3.5); Glucose 91 mg/dL (74-106); Osmolality,Calculated 272 (275-295); Potassium 4.1 mMol/L (3.4-5.1); Procalcitonin 0.04 ng/ml (0.0-0.49); Sodium 137 mMol/L (136-145); Total Protein 8.0 gm/dL (5.7-8.2); eGFR > 60 See Note
[2025-07-13 14:32] LABS: Collection Type, Urine Clean Catch
[2025-07-13 14:52] LABS: Bilirubin,Urine Negative (Negative); Blood,Urine 2+ (Negative); Clarity,Urine Clear (Clear/Hazy); Color,Urine Yellow (Lt Yel-Yel); Glucose, Urine Negative (Negative); Ketones,Urine Negative (Negative); Leukocyte Esterase,Urine Positive (Negative); Nitrite,Urine Negative (Negative); PH,Urine 6.0 (5.0-7.0); Protein,Urine 1+ (Neg - Trace); RBC,Urine 16 /hpf (0-3); Specific Gravity,Urine 1.034 (1.001-1.035); Squamous Epithelial Cell,Urine 1 /hpf (0-5); Urobilinogen,Urine Negative mg/dL (0.0-1.0); WBC,Urine 32 /hpf (0-5)
[2025-07-13 14:56] LABS: Sperm,Urine Present
--- NOTE | 2025-07-13 15:35 | EDNOTE_ITS ---
<Statement entered by Vida Brown MD - 07/13/25 17:07> As co-signing physician, I was present and available for consult prn. I concur with the plan and care as documented by the midlevel provider. ED Wound/Laceration-RME/HPI General Chief Complaint: Wound/Laceration Stated Complaint: wound Time Seen by Provider: 07/13/25 11:35 Arrival date/time: 07/13/25 11:14 65-year-old male with no known medical history presents to the emergency room with a chief complaint of a drain in his left hip no longer draining. Patient states he had a drain placed in his left hip due to an abscess. Patient states has been a week with no drainage and today when he followed up with his primary care provider he was sent to the emergency room Mode of arrival: ambulatory Limitations: no limitations RME / HPI RME / HPI narrative: 07/13/25 11:14 65-year-old male with no known medical history presents to the emergency room with a chief complaint of a drain in his left hip no longer draining. Patient states he had a drain placed in his left hip due to an abscess. Patient states has been a week with no drainage and today when he followed up with his primary care provider he was sent to the emergency room I have greeted and performed a focused initial assessment of this patient. A comprehensive ED assessment and evaluation of the patient, analysis of all test results, and completion of the medical decision making process will be conducted by additional ED providers. Exam: Left lower extremity tenderness and erythema to the site around the drain GCS of 15 Impression: Left hip abscess/osteomyelitis/cellulitis Related Data Allergies Allergy/AdvReac Type Severity Reaction Status Date / Time No Known Allergies Allergy Verified 07/13/25 11:17 Review of Systems Review of Systems Systems Reviewed: All systems reviewed, normal except as documented Constitutional Constitutional: Reports system reviewed and no additional complaints, except as documented, Denies fatigue, Denies fever(s), Denies headache(s) and Denies weakness Eyes Eyes: Reports system reviewed and no additional complaints, except as documented, Denies blurry vision and Denies change in vision ENT Ears, Nose, Mouth, and Throat: Reports system reviewed and no additional complaints, except as documented, Denies otalgia, Denies headache(s), Denies nasal congestion, Denies throat swelling and Denies vertigo Cardiovascular Cardiovascular: Reports system reviewed and no additional complaints, except as documented, Denies chest pain, Denies dyspnea and Denies dyspnea on exertion Respiratory Respiratory: Reports system reviewed and no additional complaints, except as documented, Denies chest congestion, Denies cough, Denies dyspnea, Denies dyspnea on exertion and Denies wheezing Gastrointestinal Gastrointestinal: Reports system reviewed and no additional complaints, except as documented, Denies abdominal pain, Denies cramping, Denies nausea and Denies vomiting Genitourinary Genitourinary: Reports system reviewed and no additional complaints, except as documented, Denies dysuria and Denies hematuria Musculoskeletal Musculoskeletal: Reports system reviewed and no additional complaints, except as documented and Denies back pain Integumentary/Breasts Skin/Breast: Reports system reviewed and no additional complaints, except as documented, Reports pruritus and Reports wounds Neurologic Neurologic: Reports system reviewed and no additional complaints, except as documented, Denies confusion, Denies headache(s), Denies lack of coordination, Denies vertigo and Denies weakness Psychiatric Psychiatric: Reports system reviewed and no additional complaints, except as documented, Denies anxiety, Denies confusion, Denies depression, Denies paranoia, Denies suicidal ideation and Denies tactile hallucinations Endocrine Endocrine: Reports system reviewed and no additional complaints, except as documented and Denies fatigue Hematologic/Lymphatic Hematologic/Lymphatic: Reports system reviewed and no additional complaints, except as documented and Denies lymphadenopathy Allergic/Immunologic Allergic/Immunologic: Reports system reviewed and no additional complaints, except as documented, Denies throat swelling, Denies urticaria and Denies wheezing Past Medical History Past Medical History CARDIAC: Negative Cardiac Disorders or Congestive Heart Failure RESPIRATORY: Negative Chronic Obstructive Pulmonary Disease (COPD) or Asthma GENITOURINARY: Negative Renal Disease ENDOCRINE: Negative Diabetes Mellitus Type 1 or Diabetes Mellitus Type 2 HEMATOLOGIC: Negative Sickle Cell Disease Social History SMOKING STATUS: Never smoker ED Exam General Limitations: Present no limitations General appearance: Present alert and in no apparent distress Head Head exam: Present atraumatic Eye Eye exam: Present normal appearance, PERRL and EOMI ENT ENT exam: Present normal exam, normal oropharynx and mucous membranes moist Neck Neck exam: Present normal inspection, full ROM and trachea midline Chest Chest inspection: Present normal inspection and symmetric chest wall rise Respiratory Respiratory exam: Present normal lung sounds bilaterally Cardiovascular Cardiovascular exam: Present regular rate, normal rhythm and normal heart sounds Abdominal Exam Abdominal exam: Present soft and normal bowel sounds Extremities Exam Extremities exam: Present normal inspection and full ROM Expanded Lower Extremity Exam Hip/Pelvis exam: Present tenderness, swelling and erythema Leg image: 2 1. The patient has a drain to the left thigh. There is some erythema but there is no warmth to the touch and no tenderness. Back Exam Back exam: Present normal inspection and full ROM Neurological Exam Neurological exam: Present alert, oriented X3 and CN II-XII intact Psychiatric Psychiatric exam: Present normal affect and normal mood Skin Skin exam: Present warm, dry, intact and normal color Course Quality Measures none Orders Category Date Time Status CT Screening NOW Care 07/13/25 11:[address] lower extremity BI w Stat Exams 07/13/25 11:42 Completed Blood Culture (Lab) Stat Lab 07/13/25 12:34 Received CBC Stat Lab 07/13/25 12:34 Completed CMP [Comprehensive Metabolic Panel] Stat Lab 07/13/25 12:34 Completed Lactate (Lactic Acid) Stat Lab 07/13/25 12:34 Completed Procalcitonin Stat Lab 07/13/25 12:34 Completed UA [Urinalysis] Stat Lab 07/13/25 14:27 Completed Urine Culture Stat Lab 07/13/25 14:27 Received Vital Signs Vital signs: Vital Signs Temperature 98.4 F 07/13/25 11:37 Pulse Rate 66 07/13/25 11:37 Respiratory Rate 16 07/13/25 11:37 Blood Pressure 146/76 H 07/13/25 11:37 Pulse Oximetry (%) 98 07/13/25 11:37 Oxygen Delivery Method Room Air 07/13/25 11:37 Wound / Laceration MDM Narrative MDM Narrative:: 65-year-old male with no known medical history presents to the emergency room with a chief complaint of a drain in his left hip no longer draining. Patient states he had a drain placed in his left hip due to an abscess. Patient states has been a week with no drainage and today when he followed up with his primary care provider he was sent to the emergency room Patient is hemodynamically stable and in no apparent distress Physical examination shows some erythema to the left thigh. There is a drain that is attached from a previous abscess surgery that the patient had. The patient is afebrile he is not tachycardic he is not tachypneic CBC CMP and lactic acid are all within normal limits. A CT of the lower extremity was completed and there is no new abscess. Our interventional radiologist was called as he was the one who put in the drain and his instructions were to tell the patient to return tomorrow in the morning and he will remove the drain. The patient has follow-up care and wound management for this injury Patient was discharged and educated to follow-up with primary care provider in the next 24 to 48 hours and return to the emergency room for any evidence of worsening signs or symptoms Patient data External records reviewed:: [facility] previous records Clinical information provided by:: patient Social determinants that could affect healthcare access:: none Patient has the following chronic illnesses:: No chronic illness How is presenting disease/condition affected by chronic disease/condition?: no chronic disease Evaluation data The following diagnostics were reviewed and interpreted by me:: lab results and radiology exam(s) Lab and/or radiology exams considered but not ordered:: Labs and radiology exams considered and ordered Interpretation Summary: CT lower extremity-Findings: The soft tissue abscess anterior lateral left hip has collapsed The drainage catheter is in satisfactory position The displaced prosthetic femoral head relative to the acetabulum is again noted Negative for osteomyelitis No new pelvic abscess No significant cellulitis pattern IMPRESSION: Soft tissue abscess lateral anterior to the left hip is no longer identified Medications / Prescriptions Medications or Prescriptions considered but not ordered:: No medication given Medication administrations:: No medication given Consultations Consultation(s) initiated? (list below): No Diagnosis Wound Differential Diagnosis: laceration, abscess and abrasion Most likely diagnosis given after review of the tests above:: Cellulitis Admission Indicated Admission indicated?: not indicated Admission Request Was there a request for admission?: No Disposition Plan Disposition Plan: Discharge Discharge Attestation Discharge Attestation: The patient and all family members were given an opportunity to ask questions and understood the discharge instructions. Discharge instructions specifically effects, indications for sooner follow up or return to the emergency department, and the expected course of current diagnosis. Patient condition: Stable Discharge Plan Plan Patient Disposition: HOME (Self Care) Discharge Disposition comment: Stable Prescriptions/Referrals Referrals: Eugenio Macias MD [Primary Care Provider, Family Practice] - In 1 week Problem List Clinical Impression: Cellulitis Patient/Caregiver Discharge Instructions Education Materials: Discharge Instructions for Cellulitis Additional Instructions: Please follow-up with your primary care provider in the next [address] of your lower left leg shows no new abscess. Please return tomorrow morning for removal of your drain by Dr. Johnson For any evidence of worsening signs or symptoms return to the emergency room immediately Print Language: Sinhala Stand Alone Forms: [employer] Award Info., Work/School Release, Patient Portal Info Letter PA/AIR CONDITIONING ENGINEER Supervising Physician PA/AIR CONDITIONING ENGINEER Supervising Physician:
[2025-07-13 16:37] VITALS: BP 128/76; PULSE 68; RESP 18; TEMP 36.6; O2SAT 97
== END 2025-07-13 16:39 | disposition home or self-care (01) ==
PROVIDERS: Nurse Practitioner Family; Emergency Provider Emergency Medicine; PCP Family Medicine
DX: L03.116 Cellulitis of left lower limb (principal)
CPT/HCPCS: 36415; 73701; 80053; 81001; 83605; 84145; 85025; 87040; 87077; 87086; 87186; 99283; A4649; Q9967

== ENCOUNTER → 2025-07-13 | Outpatient (CLI) | payer MEDICARE, MEDICAID, SELFPAY | END | disposition home or self-care (01) | PROVIDERS: PCP Family Medicine; Referring Provider Family Medicine; Visit Provider Student in an Organized Health Care Education/Training Program | DX: S71.002A Unspecified open wound, left hip, initial encounter (principal); X58.XXXA Exposure to other specified factors, initial encounter; L02.416 Cutaneous abscess of left lower limb | CPT/HCPCS: 99211; G0463 ==

== ENCOUNTER 2025-07-14 07:18 | Emergency (ER) | payer MEDICARE, MEDICAID, SELFPAY ==
--- NOTE | 2025-07-14 | XR_ITS ---
EXAMINATION: IR drain removal left thigh Date and time: July 14, 2025, 12 noon INDICATIONS: Abscess in the soft tissue left thigh no longer identified, patient presents for removal of the drainage catheter TECHNIQUE AND FINDINGS: The patient's drain fell out during removal of the bandage material IMPRESSION: The patient's drainage catheter fell out during removal of the bandage material
[2025-07-14 07:29] VITALS: BP 122/63; PULSE 74; RESP 16; TEMP 36.7; O2SAT 99; BMI 27.4
--- NOTE | 2025-07-14 10:17 | EDNOTE_ITS ---
<Statement entered by iVda Brown MD - 07/25/25 06:34> As co-signing physician, I was present and available for consult prn. I concur with the plan and care as documented by the midlevel provider. ED General RME/HPI General Chief complaint: General Adult/Misc Complain Stated complaint: TOLD TO RETURN TODAY TO GET DRAIN OUT Time Seen by Provider: 07/14/25 07:24 Arrival date/time: 07/14/25 07:18 65-year-old male presents to the emergency room with a chief complaint of a drain in his left hip no longer draining. Patient states he had a drain placed in his left hip due to an abscess. Patient states has been a week with no drainage and today when he followed up with his primary care provider he was sent to the emergency room Patient is hemodynamically stable and in no apparent distress Limitations: no limitations Related Data Allergies Allergy/AdvReac Type Severity Reaction Status Date / Time No Known Allergies Allergy Verified 07/14/25 07:23 Review of Systems Review of Systems Systems Reviewed: All systems reviewed, normal except as documented Constitutional Constitutional: Reports system reviewed and no additional complaints, except as documented, Denies fever(s) and Denies headache(s) Eyes Eyes: Reports system reviewed and no additional complaints, except as documented and Denies blurry vision ENT Ears, Nose, Mouth, and Throat: Reports system reviewed and no additional complaints, except as documented, Denies headache(s), Denies nasal congestion and Denies nasal discharge Cardiovascular Cardiovascular: Reports system reviewed and no additional complaints, except as documented, Denies chest pain and Denies dyspnea Respiratory Respiratory: Reports system reviewed and no additional complaints, except as documented, Denies chest congestion, Denies cough and Denies dyspnea Gastrointestinal Gastrointestinal: Reports system reviewed and no additional complaints, except as documented and Denies abdominal pain Integumentary/Breasts Skin/Breast: Reports system reviewed and no additional complaints, except as documented, Denies rash and Reports wounds (Wound/abscess/drainage left leg) Neurologic Neurologic: Reports system reviewed and no additional complaints, except as documented, Reports as per HPI and Denies headache(s) Past Medical History Past Medical History CARDIAC: Negative Cardiac Disorders or Congestive Heart Failure RESPIRATORY: Negative Chronic Obstructive Pulmonary Disease (COPD) or Asthma GENITOURINARY: Negative Renal Disease ENDOCRINE: Negative Diabetes Mellitus Type 1 or Diabetes Mellitus Type 2 HEMATOLOGIC: Negative Sickle Cell Disease Social History SMOKING STATUS: Never smoker ED Exam General Limitations: Present no limitations General appearance: Present alert and in no apparent distress Head Head exam: Present atraumatic, normocephalic and normal inspection Eye Eye exam: Present normal appearance, PERRL and EOMI; Absent conjunctival injection ENT ENT exam: Present normal exam, normal oropharynx and mucous membranes moist Neck Neck exam: Present normal inspection, full ROM and trachea midline Chest Chest inspection: Present normal inspection and symmetric chest wall rise Respiratory Respiratory exam: Present normal lung sounds bilaterally Cardiovascular Cardiovascular exam: Present regular rate, normal rhythm and normal heart sounds Abdominal Exam Abdominal exam: Present soft and normal bowel sounds Extremities Exam Extremities exam: Present full ROM, tenderness, normal capillary refill and other (Left upper leg drain in place); Absent pedal edema, joint swelling or calf tenderness Back Exam Back exam: Present normal inspection and full ROM Neurological Exam Neurological exam: Present alert, oriented X3 and CN II-XII intact Psychiatric Psychiatric exam: Present normal affect and normal mood Skin Skin exam: Present other (Drain left leg) Course Quality Measures none Orders Category Date Time Status IR tunnel cath or dev removal Urgent Exams 07/14/25 Completed Lidocaine 1% Vial 30 ml (Pf) [Xylocaine 1% Pf 30 ml] Med 07/14/25 09:54 Discontinued 30 ml .ROUTE .STK-MED ONE Vital Signs Vital signs: Vital Signs Temperature 98.1 F 07/14/25 07:29 Pulse Rate 74 07/14/25 07:29 Respiratory Rate 16 07/14/25 07:29 Blood Pressure 122/63 07/14/25 07:29 Pulse Oximetry (%) 99 07/14/25 07:29 Oxygen Delivery Method Room Air 07/14/25 07:29 o2 sat 99% r.a wnl Discharge Plan Plan Patient Disposition: HOME (Self Care) Discharge Disposition comment: stable Prescriptions/Referrals Referrals: Eugenio aMcias MD [Primary Care Provider, Family Practice] - In 1 week Problem List Clinical Impression: Removal of wound drain performed Patient/Caregiver Discharge Instructions Additional Instructions: Please follow up with your primary care doctor in the next 24-48hrs for any worsening symptoms return here immediately Print Language: Armenian Stand Alone Forms: [employer] Award Info., Patient Portal Info Letter PA/INSPECTOR HAIRSPRING Supervising Physician PA/INSPECTOR HAIRSPRING Supervising Physician: dr amber MDM Narrative MDM hospital course (for use when minimal MDM required): 65-year-old male presents to the emergency room with a chief complaint of a drain in his left hip no longer draining. Patient states he had a drain placed in his left hip due to an abscess. Patient states has been a week with no drainage and today when he followed up with his primary care provider he was sent to the emergency room Patient is hemodynamically stable and in no apparent distress Physical examination shows some erythema to the left thigh. Patient drains have drained the left leg Patient reports no fever nausea or vomiting A CT of the lower extremity yesterday was completed and there is no new abscess. Patient was instructed to have drain removed today Drain is removed in IR without difficulty by Dr Nathan radiologist Patient discharged home in no distress to follow-up with primary care doctor in the next 24 to 48 hours and for any worsening symptoms to return to the ER immediately Clinical Information Provided by: patient Medical Records reviewed [facility] Medication Administration(s) Medication Administration History Discontinued Medications Lidocaine HCl (Lidocaine Inj Pf 1% 30 Ml Vial) Confirm Administered Dose 30 ml .ROUTE .BioProtect-MED ONE Stop: 07/14/25 09:55 Last Admin: 07/14/25 10:40 Dose: Not Given Documented By: Non-Admin Reason: Per Protocol Comments: given during IR procedure
== END 2025-07-14 10:41 | disposition home or self-care (01) ==
PROVIDERS: Emergency Provider Emergency Medicine; PCP Family Medicine
DX: Z48.03 Encounter for change or removal of drains (principal)
CPT/HCPCS: 77001; 99281